=== PATIENT | male | born 1995 | race African-American/Black ===

== ENCOUNTER → 2019-07-30 | Outpatient (CLI) | payer OTHER ==
[2014-10-12 16:30] VITALS: BP 161/78
[~2019-07-30] MED LIST: MIRALAX17 GM/DOSE PO
== END ==
LOC: LAB 17:51
DX: R05 Cough (principal); R50.9 Fever, unspecified; R19.7 Diarrhea, unspecified

== ENCOUNTER → 2019-08-06 | Outpatient (CLI) | payer OTHER ==
[2014-10-12 16:30] VITALS: BP 161/78
== END ==
LOC: LAB 12:56
DX: Z20.2 Contact with and (suspected) exposure to infections with a predominantly sexual mode of transmission (principal)

== ENCOUNTER 2020-11-02 01:31 | Emergency (ER) | payer OTHER ==
[~2020-11-02] VITALS: Ht 182.9 cm; Wt 67.6 kg
[2020-11-02] MEDS ORDERED: ELIMITE60 G1 TP (02:29)
[2020-11-02 02:41] VITALS: BP 125/79
== END 2020-11-02 02:42 | disposition home or self-care (01) ==
LOC: ED 01:31
DX: B86 Scabies (principal); F17.210 Nicotine dependence, cigarettes, uncomplicated

== ENCOUNTER → 2021-01-17 | Outpatient (CLI) | payer OTHER ==
[~2021-01-17] MED LIST changes: +ELIMITE60 G1 TP
== END ==
LOC: LAB 12:55
DX: Z20.822 Contact with and (suspected) exposure to COVID-19 (principal)

== ENCOUNTER → 2021-06-19 | Outpatient (CLI) | payer OTHER ==
[2021-06-19 15:46] LABS: URINE APPEARANCE HAZY; URINE BILIRUBIN 1+ (NEGATIVE); URINE BLOOD 50 ery/uL (NEGATIVE); URINE COLOR YELLOW; URINE GLUCOSE NEGATIVE (NEGATIVE); URINE KETONE 2+ (NEGATIVE); URINE LEUKOCYTE ESTERASE NEGATIVE (NEGATIVE); URINE MUCUS PRESENT (NOT PRESENT); URINE NITRATE NEGATIVE (NEGATIVE); URINE PROTEIN(semi-quant) 2+ (NEGATIVE); URINE UROBILINOGEN NORMAL (NORMAL)
== END ==
LOC: LAB 13:51
PROVIDERS: Nurse Practitioner Family
DX: R50.9 Fever, unspecified (principal); R10.13 Epigastric pain; Z20.822 Contact with and (suspected) exposure to COVID-19

== ENCOUNTER 2021-06-20 17:13 | Emergency (ER) | payer OTHER ==
[2021-06-20 18:02] LABS: BASO # 0.03 K/mm3 (0.02-0.10); EOS # 0.49 K/mm3 (0.04-0.40); EOS % 6.8 % (0.0-4.0); HEMATOCRIT 48.6 % (42.0-52.0); HEMOGLOBIN 16.2 g/dL (13.5-18.0); LYMPH# 1.84 K/mm3 (1.50-4.00); MEAN CELL VOLUME 89 fl (78-100); MEAN CORPUSCULAR HEMOGLOBIN 30 pg (27-31); MEAN CORPUSCULAR HGB CONC 33 g/dL (33-37); MEAN PLATELET VOLUME 11.6 fl (7.4-10.4); MONO # 1.09 K/mm3 (0.20-0.80); NEU # 3.73 K/mm3 (1.40-6.50); PLATELET COUNT 205 K/mm3 (130-400); RED BLOOD COUNT 5.49 M/mm3 (4.20-5.60); RED CELL DISTRIBUTION WIDTH 12.8 % (11.5-14.5); WHITE BLOOD COUNT 7.2 K/mm3 (4.8-10.8)
[2021-06-20 18:28] LABS: ALBUMIN 4.9 g/dL (3.5-5.0)
[2021-06-20 18:29] LABS: POTASSIUM 3.7 mmol/L (3.5-5.1)
[2021-06-20 18:30] LABS: CALCIUM 9.9 mg/dL (8.3-10.5)
[2021-06-20 18:31] LABS: TOTAL PROTEIN 8.7 g/dL (6.4-8.3)
[2021-06-20 18:33] LABS: TOTAL BILIRUBIN 0.4 mg/dL (0.2-1.2)
[2021-06-20 19:15] VITALS: BP 135/81
== END 2021-06-20 19:15 | disposition home or self-care (01) ==
LOC: ED 17:13
PROVIDERS: Family Medicine
DX: R05.9 Cough, unspecified (principal)
CPT/HCPCS: Q9967

== ENCOUNTER → 2021-07-22 | Outpatient (CLI) | payer OTHER ==
[2021-07-22 15:14] LABS: URINE WBC 0 /hpf (0-3)
[2021-07-22 15:37] LABS: URINE APPEARANCE CLEAR; URINE BILIRUBIN NEGATIVE (NEGATIVE); URINE BLOOD 50 ery/uL (NEGATIVE); URINE COLOR YELLOW; URINE GLUCOSE NEGATIVE (NEGATIVE); URINE KETONE NEGATIVE (NEGATIVE); URINE LEUKOCYTE ESTERASE NEGATIVE (NEGATIVE); URINE NITRATE NEGATIVE (NEGATIVE); URINE PROTEIN(semi-quant) TRACE (NEGATIVE); URINE UROBILINOGEN NORMAL (NORMAL)
== END | disposition still patient (30) ==
LOC: LAB 14:49
PROVIDERS: Family Medicine
DX: F31.9 Bipolar disorder, unspecified (principal); R82.90 Unspecified abnormal findings in urine; Z72.89 Other problems related to lifestyle

== ENCOUNTER 2024-04-03 11:00 | Emergency (ER) | payer OTHER ==
[~2024-04-03] VITALS: Ht 182.9 cm; Wt 71.7 kg
[~2024-04-03 11:00] MED LIST changes: +PREDNISONE20 M1 PO; +ZYPREXA 5MG5 MG PO
[2024-04-03 11:18] VITALS: BP 128/84
[2024-04-03] MEDS ORDERED: GEODON 20 MG20 MG PO (11:28)
== END 2024-04-03 11:54 | disposition home or self-care (01) ==
LOC: ED 11:00
DX: J06.9 Acute upper respiratory infection, unspecified (principal)

== ENCOUNTER 2024-04-06 02:09 | Emergency (ER) | payer OTHER ==
[~2024-04-06] VITALS: Ht 182.9 cm; Wt 72.7 kg
[~2024-04-06 02:09] MED LIST changes: +GEODON 20 MG20 MG PO
[2024-04-06 02:23] VITALS: BP 137/92
[2024-04-06] MEDS ORDERED: Tdap Vaccine 0.5 ML SYRINGE IM ONE (02:45)
== END 2024-04-06 02:54 | disposition home or self-care (01) ==
LOC: ED 02:09
DX: S61.210A Laceration without foreign body of right index finger without damage to nail, initial encounter (principal); F17.210 Nicotine dependence, cigarettes, uncomplicated; Z23 Encounter for immunization; W26.9XXA Contact with unspecified sharp object(s), initial encounter; Y93.G3 Activity, cooking and baking
CPT/HCPCS: 90715